=== PATIENT | male | born 1950 | race Caucasian/White ===

== ENCOUNTER 2021-08-24 11:44 | Observation (INO) | payer OTHER ==
[2021-08-24 12:56] LABS: Hematocrit 38.4 % (42-50); Hemoglobin 12.5 gm/dl (12.5-18.0); Mean Corpuscular Hemoglobin 30.9 pg (26-32); Mean Corpuscular Hgb Concent. 32.6 g/dl (32-36); Mean Platelet Volume 8.9 fl (7.5-11.0); Platelet Count 342 K/mm3 (150-450); Red Blood Count 4.04 M/mm3 (4.1-5.6); Red Cell Distribution Width 14.5 % (11.5-14.0); White Blood Count 6.8 K/mm3 (4.0-10.5)
[2021-08-24 13:25] LABS: INFLUENZA A NEGATIVE (NEGATIVE); INFLUENZA B NEGATIVE (NEGATIVE); RESPIRATORY SYNCTIAL VIRUS NEGATIVE (Negative); SARS-CoV-2 Xpert Express NEGATIVE (NEGATIVE)
[2021-08-24] MEDS: DUONEB 0.5-3 MG/3 ml Neb IH SCH ×3 (13:42→23:35)
[2021-08-24] MEDS ORDERED: solu-MEDROL 60 MG, Sterile H2O 10 ml 2 ML IV SCH ×2 (14:00)
[2021-08-24 14:01] LABS: ALBUMIN 3.6 g/dL (3.5-5.0); ALKALINE PHOSPHATASE 103 U/L (38-126); AMYLASE 76 U/L (30-110); ANION GAP 14.9 MEQ/L (5-15); BLOOD UREA NITROGEN 20 mg/dL (9-20); CHLORIDE 98 mmol/L (98-107); Calcium 9.1 mg/dL (8.4-10.2); Carbon Dioxide 28 mmol/L (22-30); Creatinine 1 0.93 mg/dL (0.66-1.25); EST GLOMERULAR FILTRATION RATE > 60.0 ML/MIN; Glucose 103 mg/dL (74-106); LIPASE 143 U/L (23-300); Potassium 4.6 mmol/L (3.5-5.1); SGOT/AST 52 U/L (17-59); SGPT/ALT 53 U/L (0-50); SODIUM 137 mmol/L (137-145); TROPONIN < 0.012 ng/mL (0.000-0.034); Total Protein 6.6 g/dL (6.3-8.2)
[2021-08-24 14:30] LABS: Vitamin B12 > 1000 pg/mL (239-931)
[2021-08-24] MEDS ORDERED: HOLD METFORMIN PRODUCTS FOR 48 HOURS MC SCH (16:00)
[2021-08-24] MEDS: Sodium Chloride 0.9% 1000 ML 1,000 ML IV SCH (16:22)
[2021-08-24] MEDS ORDERED: Nitrostat 0.4 MG Tablet SL PRN (16:22)
[2021-08-24] MEDS: ROCEPHIN 1 Gm-D5w 50 ml Bag** 1 G/50 ML IVPB IV SCH (16:23)
--- NOTE | 2021-08-24 16:28 | XRAY ---
Indication: Cough. Pneumonia. Elevated d-dimer. Multiple contiguous axial images obtained through the chest using 100 cc Isovue 370 contrast and PE protocol. Comparison: None There is adequate opacification of the pulmonary arteries. No pulmonary embolus. Heart is not enlarged. Aorta is normal in course and caliber. No pathologic mediastinal/hilar lymphadenopathy. Lungs demonstrate minimal bibasilar subsegmental atelectasis/scarring. No suspicious pulmonary mass/nodule, infiltrate, consolidation, or effusion. Bony thorax intact with mild osteopenia and mild degenerative changes throughout the spine. Limited upper abdomen demonstrates fatty liver and cholecystectomy clips. Impression: 1. Negative pulmonary embolus. 2. Bibasilar subsegmental atelectasis/scarring, chronic bony findings, and fatty liver. 3. Remaining CT chest with contrast exam is negative.
[2021-08-24] MEDS ORDERED: Cyanocobalamin B-12 1000 MCG/ML IJ SCH (16:30)
--- NOTE | 2021-08-24 16:31 | XRAY ---
Indication: Dyspnea and fatigue. Pneumonia. Comparison: None PA/lateral chest demonstrates minimal bibasilar fibrosis/scarring. Remaining heart and lungs unremarkable. Bony fact intact with mild osteopenia and degenerative changes. Impression: Nonacute chest with chronic features.
[2021-08-24] MEDS: NON-FORMULARY ITEM PO SCH ×2 (16:35→22:17)
[2021-08-24 16:46] LABS: Appearance CLEAR (CLEAR); Bilirubin NEGATIVE (NEGATIVE); Blood NEGATIVE Ery/ul (0-5); Glucose NEGATIVE (NEGATIVE); Ketones TRACE (NEGATIVE); Leukocyte Esterase NEGATIVE (NEGATIVE); Mucus SLIGHT /HPF (NEGATIVE); Nitrite NEGATIVE (NEGATIVE); Protein,Urine Dip NEGATIVE (Negative); Specific Gravity 1.023 (1.005-1.025); Urobilinogen 4 mg/dL (0-1)
[2021-08-24] MEDS: Zithromax 500 MG/ 250 ML NaCl Premix 500 MG/250 ML IVPB IV SCH (17:52)
[2021-08-24] MEDS ORDERED: ZOCOR 20MG PO SCH (18:00)
[2021-08-24] MEDS ORDERED: Zanaflex 4 MG PO SCH (18:00)
[2021-08-24] MEDS ORDERED: NON-FORMULARY ITEM (Atorvastatin Calcium [Atorvastatin Calcium] 20 MG Tablet) PO SCH (18:00)
[2021-08-24] MEDS ORDERED: Zofran 4 MG/2 ML VIAL IV PRN (19:35)
[2021-08-24] MEDS ORDERED: NON-FORMULARY ITEM (Melatonin [Melatonin] 10 MG Tablet) PO SCH (22:00)
[2021-08-24] MEDS: NEURONTIN 300 MG PO SCH (22:16)
[2021-08-24] MEDS: REQUIP 2MG TAB PO SCH (22:17)
[2021-08-24] MEDS: solu-MEDROL 60 MG, Sterile H2O 10 ml 2 ML IV SCH ×2 (23:00)
[2021-08-25] MEDS: Sodium Chloride 0.9% 1000 ML 1,000 ML IV SCH (01:50)
[2021-08-25] MEDS: solu-MEDROL 60 MG, Sterile H2O 10 ml 2 ML IV SCH ×2 (05:32)
[2021-08-25] MEDS: DUONEB 0.5-3 MG/3 ml Neb IH SCH (06:00)
[2021-08-25] MEDS ORDERED: NON-FORMULARY ITEM (Multivitamin [Multi-Vitamin Daily] 1 EACH Tablet) PO SCH (10:00)
[2021-08-25] MEDS ORDERED: Pepcid 20 MG PO SCH (10:00)
[2021-08-25] MEDS ORDERED: MELOXICAM PO SCH (10:00)
[2021-08-25] MEDS ORDERED: THERAGRAN MULTIVITAMIN PO SCH (10:00)
[2021-08-25] MEDS ORDERED: Vitamin B-12 500 MCG PO SCH (10:00)
[2021-08-25] MEDS ORDERED: NON-FORMULARY ITEM (Esomeprazole Magnesium [Nexium] 40 MG Capsule.Dr) PO SCH (10:00)
[2021-08-25] MEDS ORDERED: NORVASC 5 MG PO SCH (10:00)
[2021-08-25] MEDS ORDERED: Protonix 40MG Tablet PO SCH (10:00)
[2021-08-25] MEDS ORDERED: NON-FORMULARY ITEM (Cyanocobalamin (Vitamin B-12) [Vitamin B12] 2,500 MCG Tablet) PO SCH (10:00)
[2021-08-25] MEDS ORDERED: RANITIDINE HCL 300 MG PO SCH (10:00)
[2021-08-25] MEDS: ROCEPHIN 1 Gm-D5w 50 ml Bag** 1 G/50 ML IVPB IV SCH (10:05)
[2021-08-25] MEDS: NEURONTIN 300 MG PO SCH (10:06)
[2021-08-25] MEDS: NON-FORMULARY ITEM PO SCH (10:06)
[2021-08-25] MEDS: REQUIP 2MG TAB PO SCH (10:06)
[2021-08-25] MEDS: Zithromax 500 MG/ 250 ML NaCl Premix 500 MG/250 ML IVPB IV SCH (10:38)
[2021-08-26] MEDS ORDERED: Glucophage 500 MG PO SCH (17:00)
--- NOTE | 2021-08-28 15:29 | ECHO ---
Transthoracic echocardiographic examination and color Doppler was done on 08/24/2021. INDICATION: Shortness of breath. IMPRESSION: 1) NO REGIONAL WALL MOTION ABNORMALITY. ESTIMATED GLOBAL LEFT VENTRICULAR EJECTION FRACTION OF AROUND 60%. 2) TRACE TRICUSPID REGURGITATION. RIGHT VENTRICULAR SYSTOLIC PRESSURE OF 22 MM OF MERCURY. 3) LEFT VENTRICULAR DIASTOLIC DYSFUNCTION. The left ventricle is visualized and demonstrated adequate motion of all the segments. Estimated global left ventricular ejection fraction of 60%. The left ventricular thickness is normal. The mitral valve is seen and this opens adequately. No significant mitral regurgitation is seen. Left atrium is normal. Tissue Doppler study of the lateral mitral annulus suggestive of a left ventricle diastolic dysfunction. The aortic valve opens adequately. There is no significant gradient across the left ventricular outflow tract. The right side chambers are normal. There is trace tricuspid regurgitation. The right ventricular systolic pressure of 22 mm of Mercury.
[2021-08-28 15:34] LABS: Procalcitonin 0.06 ng/mL (0.00-0.08)
[2021-08-28 16:58] VITALS: BP 118/58; PULSE 117; O2SAT 90
[2021-09-06 10:39] LABS: Endomysial Antibody Titer IgA <1:2.5 titer (.)
--- NOTE | 2021-09-09 13:22 | PCM.SSS ---
History of Present Illness - Chief Complaint Chief Complaint: Pneumonia, dyspnea, fatigue Date: 08/25/21 History of Present Illness: is a 71 year old male. Pt. presented to office with persistence of weakness, cough and fevers over the past couple of weeks with recent hospitalization for pneumonia, this is very uncharacteristic for the patient and with crackles in left base it was felt the pneumonia was persistent as the patient had covid several weeks ago and thought of persistent covid related weakness could also be etiology of his ongoing illness. - Review of Systems Constitutional: Fever, Weakness Eyes: No Symptoms Ears, Nose, & Throat: No Symptoms Respiratory: Cough, Short Of Breath Cardiac: No Chest Pain, No Edema, No Syncope Abdominal/Gastrointestinal: No Abdominal Pain, No Nausea, No Vomiting, No Diarrhea Genitourinary Symptoms: No Dysuria Musculoskeletal: No Back Pain, No Neck Pain Skin: No Rash Neurological: No Dizziness, No Focal Weakness, No Sensory Changes Psychological: No Symptoms Endocrine: No Symptoms Hematologic/Lymphatic: No Symptoms Immunological/Allergic: No Symptoms Medications & Allergies Home Medications: Home Medication List Amlodipine Besylate 5 mg PO DAILY 08/24/21 [History Confirmed 08/24/21] Atorvastatin Calcium 20 mg PO EVENING MEAL 08/24/21 [History Confirmed 08/24/21] Cyanocobalamin (Vitamin B-12) [Vitamin B12] 2,500 mcg PO DAILY 08/24/21 [History Confirmed 08/24/21] Cyanocobalamin 1000 Mcg/ml [Cyanocobalamin B-12 1000 MCG/ML] 1,000 mcg IJ UD 08/24/21 [History Confirmed 08/24/21] Esomeprazole Magnesium [Nexium] 40 mg PO DAILY 08/24/21 [History Confirmed 08/24/21] Gabapentin 300 mg [Neurontin 300 mg] 300 mg PO TID 08/24/21 [History Confirmed 08/24/21] Melatonin 20 mg PO HS 08/24/21 [History Confirmed 08/24/21] Meloxicam 7.5 mg PO DAILY 08/24/21 [History Confirmed 08/24/21] Metformin HCl 500 mg [Glucophage 500 MG] 1,000 mg PO BID 08/24/21 [History Confirmed 08/24/21] Multivitamin [Multi-Vitamin Daily] 1 tab PO DAILY 08/24/21 [History Confirmed 08/24/21] Nitroglycerin 0.4 mg Tablet [Nitrostat 0.4 MG Tablet] 0.4 mg SL Q5MIN PRN MR X 3 PRN 08/24/21 [History Confirmed 08/24/21] Ranitidine HCl 300 mg PO DAILY 08/24/21 [History Confirmed 08/24/21] Ropinirole 2Mg [Requip 2Mg Tab] 4 mg PO BID 08/24/21 [History Confirmed 08/24/21] Tizanidine HCl 4 mg [Zanaflex 4 MG] 4 mg PO EVENING MEAL 08/24/21 [History Confirmed 08/24/21] Albuterol 2.5 mg/3 ml Neb [Proventil 2.5 mg/3 ml Neb] 2.5 mg IH Q6HPRN PRN 30 Days 08/25/21 [Rx] Methylprednisolone Packet [Medrol Dosepack] 4 mg PO DAILY 5 Days packet 08/25/21 [Rx] Valacyclovir HCl [Valacyclovir] 1,000 mg PO BID 10 Days tablet 08/25/21 [Rx] Allergies/Adverse Reactions: Allergies Allergy/AdvReac Type Severity Reaction Status Date / Time codeine AdvReac Verified 08/24/21 15:30 - Past Medical History Past Medical History: Yes Neurological History: No Pertinent History ENT History: No Pertinent History Cardiac History: Arrhythmia, Congenital Heart Disease, High Cholesterol, Hypertension Respiratory History: Pneumonia Endocrine Medical History: Diabetes Type II Musculoskelatal History: No Pertinent History GI Medical History: Hernia History: No Pertinent History Pyscho-Social History: No Pertinent History Male Reproductive Disorders: No Pertinent History - Past Surgical History Past Surgical History: Yes Neuro Surgical History: No Pertinent History Cardiac History: Cardiac Catheterization Respiratory Surgery: No Pertinent History GI Surgical History: Appendectomy, Bowel Surgery, Cholecystectomy Genitourinary Surgical Hx: No Pertinent History Musculskeletal Surgical Hx: Orthopedic Surgery Male Surgical History: No Pertinent History Other Surgical History: 2 back surgeries - Social History Smoking Status: Former smoker Exposure to second hand smoke: No Alcohol: None Drug Use: none - Physical Exam General Appearance: no apparent distress, alert Neurologic Exam: alert, oriented x 3, cooperative, normal mood/affect, nml cerebellar function, nml station & gait, sensation nml, No motor deficits Eye Exam: PERRL/EOMI, eyes nml inspection Ears, Nose, Throat Exam: normal ENT inspection, TMs normal, pharynx normal, moist mucous membranes Neck Exam: normal inspection, non-tender, supple, full range of motion Respiratory Exam: crackles/rales (left lower lobe), No chest tenderness, No respiratory distress Cardiovascular Exam: regular rate/rhythm, normal heart sounds, normal peripheral pulses Gastrointestinal/Abdomen Exam: soft, normal bowel sounds, No tenderness, No mass Back Exam: normal inspection, normal range of motion, No CVA tenderness, No vertebral tenderness Extremity Exam: normal inspection, normal range of motion, pelvis stable Skin Exam: normal color, warm, dry, No rash Lymphatic Exam: No adenopathy Assessment/Plan (1) COPD exacerbation Status: Acute Assessment & Plan: Pt. admitted and started on iv antibiotics, with further evaluation initiated. Code(s): J44.1 - CHRONIC OBSTRUCTIVE PULMONARY DISEASE W (ACUTE) EXACERBATION (2) Pneumonia Status: Acute Code(s): J18.9 - PNEUMONIA, UNSPECIFIED ORGANISM Hospital Summary - Hospital Course Hospital Course: Pt. admitted for further evaluation, iv fluids and iv antibiotics, by the following morning the patient was feeling much better and ready for discharge to home. Pneumonia evaluation did not show any problems on cxr and antibiotics were d/c'd upon discharge - Vitals & Intake/Output Vital Signs: Vital Signs Temperature 97.0 F 08/25/21 12:00 Pulse Rate 117 H 08/25/21 12:00 Respiratory Rate 27 H 08/25/21 12:00 Blood Pressure 118/58 08/25/21 12:00 O2 Sat by Pulse Oximetry 90 L 08/25/21 12:00 - Lab Result Diagrams: 08/24/21 12:52 08/24/21 12:52 - Procedures and Test Procedures and Tests throughout Hospitalization: Therapy Orders & Screens 08/24/21 12:40 Respiratory Nebulizer Q6H Comment: duonebs every 6 hrs Diagnosis: pne,dyspnea,fatigue 08/24/21 14:10 Respiratory Therapy Assessment DAILY Comment: Diagnosis: pne,dyspnea,fatigue - Discharge Discharge Date: 08/25/21 Disposition: Home, Self-Care Condition: Stable Prescriptions: New Methylprednisolone Packet [Medrol Dosepack] 4 mg PO DAILY 5 Days packet Valacyclovir HCl [Valacyclovir] 1,000 mg PO BID 10 Days tablet Albuterol 2.5 mg/3 ml Neb [Proventil 2.5 mg/3 ml Neb] 2.5 mg IH Q6HPRN PRN 30 Days PRN Reason: Shortness Of Breath/Wheezing No Action Melatonin 20 mg PO HS Cyanocobalamin 1000 Mcg/ml [Cyanocobalamin B-12 1000 MCG/ML] 1,000 mcg IJ UD Cyanocobalamin (Vitamin B-12) [Vitamin B12] 2,500 mcg PO DAILY Tizanidine HCl 4 mg [Zanaflex 4 MG] 4 mg PO EVENING MEAL Ropinirole 2Mg [Requip 2Mg Tab] 4 mg PO BID Ranitidine HCl 300 mg PO DAILY Nitroglycerin 0.4 mg Tablet [Nitrostat 0.4 MG Tablet] 0.4 mg SL Q5MIN PRN MR X 3 PRN PRN Reason: Chest Pain Metformin HCl 500 mg [Glucophage 500 MG] 1,000 mg PO BID Meloxicam 7.5 mg PO DAILY Gabapentin 300 mg [Neurontin 300 mg] 300 mg PO TID Esomeprazole Magnesium [Nexium] 40 mg PO DAILY Atorvastatin Calcium 20 mg PO EVENING MEAL Amlodipine Besylate 5 mg PO DAILY Multivitamin [Multi-Vitamin Daily] 1 tab PO DAILY Instructions: Fatigue (DC), Pneumonia, Adult (DC), Shortness of Breath (Dyspnea) (DC) Additional Instructions: DR. VALENCIA OFFICE WILL SEND IN FOR A NEW GLUCOMETER FOR YOU HOLD METFORMIN, MAY RESTART 08/26 IN THE EVENING Follow up with: CIPRIANO MCQUEEN MD [Primary Care Provider] - 08/29/21 3:00 pm Forms: Discharge Instructions
== END 2021-08-25 13:55 | disposition home or self-care (01) ==
LOC: MED SURG 12:00
PROVIDERS: ADMIT Family Medicine; ATTEND Family Medicine
DX: J44.1 Chronic obstructive pulmonary disease with (acute) exacerbation (principal); J18.9 Pneumonia, unspecified organism; R53.83 Other fatigue; Z20.828 Contact with and (suspected) exposure to other viral communicable diseases; Z79.899 Other long term (current) drug therapy; R53.1 Weakness; E11.9 Type 2 diabetes mellitus without complications; I10 Essential (primary) hypertension; E78.00 Pure hypercholesterolemia, unspecified
CPT/HCPCS: 0241U; 36415; 71046; 71260; 80053; 81001; 82150; 82306; 82607; 82947; 83036; 83690; 84100; 84145; 84443; 84484; 85027; 85379; 85652; 86038; 86255; 86430; 93306; 94640; 94760; G0378; J0456; J0696; J2405; J2930; A9270-GY

== ENCOUNTER 2022-10-11 07:29 | Emergency (ER) | payer MEDICARE ==
[2022-10-11] MEDS ORDERED: solu-MEDROL 125 MG, Sterile H2O 10 ml 2 ML IV ONE ×2 (07:41)
[2022-10-11] MEDS ORDERED: DUONEB 0.5-3 MG/3 ml Neb IH ONE ×2 (07:41→08:22)
--- NOTE | 2022-10-11 08:18 | ERPHSYRPT ---
- History of Present Illness Time Seen by Provider: 10/11/22 07:41 Source: patient Exam Limitations: no limitations Patient Subjective Stated Complaint: C/O SOB with cough. Patient indicates that this started 4-5 days ago but became "bad" last night. Denies any pain. States at home has COVID and tested positive on Saturday but his home tests have been negative. Denies fever. Triage Nursing Assessment: Patient ambulated back to ED. Patient a little SOB with extertion but not at rest. No SOB noted during assessment. Patient has a dry, non-productive, forceful cough. Lungs assessed by Dr. Moreno during triage. Skin tone normal. MARION SMITH. Physician History: 72 years old male with history of coronary artery disease status post stenting, hypertension, hyperlipidemia, psoriasis presented in the ER with chief complaint of worsening shortness of breath. Patient reports initially started as a URI cold symptoms are gradually going down in the chest with cough productive of clear to yellow sputum for the last 4 to 5 days and progressively getting worse. Patient reports feeling bit more worse since last night with coughing spells and it gets hard to get short of breath. No fever or chills reported. Patient does report having positive contact with COVID-19 although he tested negative at home. No chest pain reported otherwise. No lower extremity swelling. Timing/Duration: day(s), gradual onset, worse Activities at Onset: activity, other Severity of Dyspnea-Max: moderate Severity of Dyspnea-Current: moderate Possible Cause: illness exposure Modifying Factors: Improves With: coughing. Worsens With: exertion Associated Symptoms: cough, productive cough, No chest pain/discomfort, No fever, No wheezing, No dizziness, No heaviness, No heart racing, No lightheadedness, No muscle spasms hands, No painful breathing, No tingling face, No tingling hands Allergies/Adverse Reactions: codeine Adverse Reaction (Verified 10/11/22 07:30) GI reaction Home Medications: Amlodipine Besylate 5 mg PO DAILY 08/24/21 [History] Atorvastatin Calcium 40 mg PO EVENING MEAL 08/24/21 [History] Cyanocobalamin (Vitamin B-12) [Vitamin B12] 2,500 mcg PO DAILY 08/24/21 [History] Cyanocobalamin 1000 Mcg/ml [Cyanocobalamin B-12 1000 MCG/ML] 1,000 mcg IJ UD 08/24/21 [History] Esomeprazole Magnesium [Nexium] 40 mg PO DAILY 08/24/21 [History] Gabapentin [Neurontin ] 300 mg PO TID 08/24/21 [History] Melatonin 20 mg PO HS 08/24/21 [History] Meloxicam 7.5 mg PO DAILY 08/24/21 [History] Metformin HCl 500 mg [Glucophage 500 MG] 1,000 mg PO BID 08/24/21 [History] Multivitamin [Multi-Vitamin Daily] 1 tab PO DAILY 08/24/21 [History] Nitroglycerin 0.4 mg Tablet [Nitrostat 0.4 MG Tablet] 0.4 mg SL Q5MIN PRN MR X 3 PRN 08/24/21 [History] Ropinirole 2Mg [Requip 2Mg Tab] 4 mg PO BID 08/24/21 [History] Tizanidine HCl 4 mg [Zanaflex 4 MG] 4 mg PO EVENING MEAL 08/24/21 [History] raNITIdine HCL [Ranitidine HCl] 300 mg PO DAILY 08/24/21 [History] Clopidogrel Bisulfate [Clopidogrel] 1 tab PO DAILY 10/11/22 [History] Diclofenac Sodium 50 mg [Voltaren 50 mg] 1 tab PO DAILY 10/11/22 [History] Losartan Potassium [Cozaar] 1 tab PO DAILY 10/11/22 [History] Metoprolol Succinate 1 tab PO DAILY 10/11/22 [History] Hx Tetanus, Diphtheria Vaccination/Date Given: Yes Hx Influenza Vaccination/Date Given: Yes Hx Pneumococcal Vaccination/Date Given: Yes Immunizations Up to Date: Yes Travel Risk - International Travel Have you traveled outside of the country in past 3 weeks: No - Coronavirus Screening Are you exhibiting any of the following symptoms?: Yes Symptoms: Cough: New Onset, Shortness of Breath Close contact with a COVID-19 positive Pt in past 14-21 Days: Yes - Vaccine Status Have you recieved a Covid-19 vaccination: Yes [employer]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 - Vaccination Dates Date of 2cond Vaccination (if applicable): 11/28/20 - Review of Systems Constitutional: Fatigue, Weakness Eyes: No Symptoms Ears, Nose, & Throat: Nose Congestion, Sinus Drainage, Throat Pain Respiratory: Cough, Dyspnea Cardiac: No Symptoms Abdominal/Gastrointestinal: No Symptoms Genitourinary Symptoms: No Symptoms Musculoskeletal: Arthralgias Skin: No Symptoms Neurological: No Symptoms Psychological: No Symptoms Endocrine: No Symptoms Hematologic/Lymphatic: No Symptoms Immunological/Allergic: No Symptoms - Past Medical History Pertinent Past Medical History: Yes Neurological History: No Pertinent History ENT History: No Pertinent History Cardiac History: Arrhythmia, Congenital Heart Disease, High Cholesterol, Hypertension Respiratory History: Pneumonia Endocrine Medical History: Diabetes Type II Musculoskeletal History: No Pertinent History GI Medical History: GERD, Gallbladder Disease, Hernia History: No Pertinent History Psycho-Social History: No Pertinent History Male Reproductive Disorders: No Pertinent History Other Medical History: Psoriasis - Past Surgical History Past Surgical History: Yes Neuro Surgical History: No Pertinent History Cardiac: Cardiac Catheterization, Cardiac Stent Respiratory: No Pertinent History Gastrointestinal: Appendectomy, Bowel Surgery, Cholecystectomy Genitourinary: No Pertinent History Musculoskeletal: Orthopedic Surgery Male Surgical History: No Pertinent History Other Surgical History: 2 back surgeries, neck surgery - Social History Smoking Status: Former smoker Exposure to second hand smoke: No Drug Use: none Patient Lives Alone: No () - Nursing Vital Signs Nursing Vital Signs: Initial Vital Signs Temperature 98.6 F 10/11/22 07:31 Pulse Rate 89 10/11/22 07:31 Respiratory Rate 12 10/11/22 07:31 Blood Pressure 169/80 10/11/22 07:31 O2 Sat by Pulse Oximetry 99 10/11/22 07:31 Pain Scale Pain Intensity 0 - Physical Exam General Appearance: no apparent distress, alert Eye Exam: PERRL/EOMI Ears, Nose, Throat Exam: hearing grossly normal, normal ENT inspection, normal pharynx, abnormal TM (R) Neck Exam: normal inspection, non-tender, supple, full range of motion Respiratory Exam: normal breath sounds, lungs clear Cardiovascular/Chest Exam: normal heart sounds, regular rate/rhythm Abdominal/Gastrointestinal Exam: soft, normal bowel sounds, No tenderness Extremity Exam: non-tender, normal range of motion Neurologic Exam: alert, oriented x 3, cooperative Skin Exam: normal color SpO2 Interpretation: normal SpO2: 99 O2 Delivery: Room Air - Course EKG Interpreted by Me: RATE (82), Sinus Rhythm, NORMAL AXIS, NORMAL INTERVALS, NORMAL QRS Ordered Tests: Active Orders 24 hr Category Date Time Status Hydropulper Operator STAT Care 10/11/22 07:42 Active EKG-ER Only STAT Care 10/11/22 07:41 Active IV Insertion STAT Care 10/11/22 07:41 Active CHEST 1 VIEW (PORTABLE) Stat Exams 10/11/22 07:42 Completed BLOOD CULTURE Stat Lab 10/11/22 07:50 Received CBC W DIFF Stat Lab 10/11/22 07:50 Completed CMP Stat Lab 10/11/22 07:50 Completed Lactic Acid Stat Lab 10/11/22 07:50 Completed Lactic Acid Stat Lab 10/11/22 10:34 Received MAGNESIUM Stat Lab 10/11/22 07:50 Completed NT PRO BNP Stat Lab 10/11/22 07:50 Completed PROCALCITONIN Stat Lab 10/11/22 07:50 Completed TROPONIN Q4H Lab 10/11/22 07:50 Completed TROPONIN Q4H Lab 10/11/22 11:45 Ordered TROPONIN Q4H Lab 10/11/22 15:45 Ordered Medication Summary Discontinued Medications Generic Name Dose Route Start Last Admin Trade Name Freq PRN Reason Stop Dose Admin Hydrocodone Bitart/Acetaminophen 10 ml 10/11/22 08:28 10/11/22 08:52 Hydrocodone/Acetaminophen 5 Ml Udcup PO 10/11/22 08:29 10 ml STAT STA Administration Hydrocodone Bitart/Acetaminophen Confirm 10/11/22 08:51 Hydrocodone/Acetaminophen 5 Ml Udcup Administered 10/11/22 08:52 Dose 10 ml .ROUTE .STK-MED ONE Albuterol/Ipratropium 3 ml 10/11/22 07:41 10/11/22 08:25 Ipratropium/Albuterol Sulfate 3 Ml Ampul.Neb IH 10/11/22 07:42 3 ml STAT ONE Administration Albuterol/Ipratropium Confirm 10/11/22 08:22 Ipratropium/Albuterol Sulfate 3 Ml Ampul.Neb Administered 10/11/22 08:23 Dose 3 ml IH .STK-MED ONE Methylprednisolone Sodium 0 mg 10/11/22 07:41 10/11/22 08:51 Succinate 125 mg/ Sterile IV 10/11/22 07:42 125 mg Water 2 ml STAT ONE Administration Methylprednisolone Sodium Succinate Confirm 10/11/22 08:51 Methylprednis Sod Succ 125 Mg/2 Ml Vial Administered 10/11/22 08:52 Dose 125 mg .ROUTE .agri.capitalK-MED ONE Sterile Water Confirm 10/11/22 08:51 Water For Injection,Sterile 10 Ml Vial Administered 10/11/22 08:52 Dose 10 ml IJ .STK-MED ONE Lab/Rad Data: Laboratory Result Diagrams 10/11/22 07:50 10/11/22 07:50 Laboratory Results 10/11/22 10/11/22 10/11/22 Range/Units 07:50 07:50 07:50 WBC (4.0-10.5) x10^3/uL RBC (4.1-5.6) x10^6/uL Hgb (12.5-18.0) g/dL Hct (42-50) % MCV (78-100) fL MCH (26-32) pg MCHC (32-36) g/dL RDW (11.5-14.0) % Plt Count (150-450) x10^3/uL MPV (7.5-11.0) fL Gran % (36.0-66.0) % Immature Gran % (Auto) (0.00-0.4) % Nucleat RBC Rel Count (0.00-0.1) % Eos # (Auto) (0-0.5) x10^3/uL Immature Gran # (Auto) (0.00-0.03) x10^3u/L Absolute Lymphs (auto) (1.0-4.6) x10^3/uL Absolute Monos (auto) (0.0-1.3) x10^3/uL Absolute Nucleated RBC (0.00-0.01) x10^3u/L Lymphocytes % (24.0-44.0) % Monocytes % (0.0-12.0) % Eosinophils % (0.00-5.0) % Basophils % (0.0-0.4) % Absolute Granulocytes (1.4-6.9) x10^3/uL Basophils # (0-0.4) x10^3/uL Sodium (137-145) mmol/L Potassium (3.5-5.1) mmol/L Chloride (98-107) mmol/L Carbon Dioxide (22-30) mmol/L Anion Gap (5-15) MEQ/L BUN (9-20) mg/dL Creatinine (0.66-1.25) mg/dL Estimated GFR ML/MIN Glucose (74-106) mg/dL Lactic Acid (0.4-2.0) Calcium (8.4-10.2) mg/dL Magnesium (1.6-2.3) mg/dL Total Bilirubin (0.2-1.3) mg/dL AST (17-59) U/L ALT (0-50) U/L Alkaline Phosphatase (38-126) U/L Troponin I < 0.012 (0.000-0.034) ng/mL NT-Pro-B Natriuret Pep (0-900) pg/mL Serum Total Protein (6.3-8.2) g/dL Albumin (3.5-5.0) g/dL Procalcitonin 0.048 (0.030-0.080) ng/mL Influenza Type A Ag NEGATIVE (NEGATIVE) Influenza Type B Ag NEGATIVE (NEGATIVE) RSV (PCR) NEGATIVE (Negative) SARS-CoV-2 (PCR) POSITIVE A (NEGATIVE) 10/11/22 10/11/22 10/11/22 Range/Units 07:50 07:50 07:50 WBC 11.4 H (4.0-10.5) x10^3/uL RBC 4.30 (4.1-5.6) x10^6/uL Hgb 13.6 (12.5-18.0) g/dL Hct 40.4 L (42-50) % MCV 94.0 (78-100) fL MCH 31.6 (26-32) pg MCHC 33.7 (32-36) g/dL RDW 13.3 (11.5-14.0) % Plt Count 273 (150-450) x10^3/uL MPV 9.7 (7.5-11.0) fL Gran % 70.7 H (36.0-66.0) % Immature Gran % (Auto) 0.8 H (0.00-0.4) % Nucleat RBC Rel Count 0.0 (0.00-0.1) % Eos # (Auto) 0.19 (0-0.5) x10^3/uL Immature Gran # (Auto) 0.09 H (0.00-0.03) x10^3u/L Absolute Lymphs (auto) 1.41 (1.0-4.6) x10^3/uL Absolute Monos (auto) 1.60 H (0.0-1.3) x10^3/uL Absolute Nucleated RBC 0.00 (0.00-0.01) x10^3u/L Lymphocytes % 12.4 L (24.0-44.0) % Monocytes % 14.0 H (0.0-12.0) % Eosinophils % 1.7 (0.00-5.0) % Basophils % 0.4 (0.0-0.4) % Absolute Granulocytes 8.06 H (1.4-6.9) x10^3/uL Basophils # 0.05 (0-0.4) x10^3/uL Sodium 138 (137-145) mmol/L Potassium 4.6 (3.5-5.1) mmol/L Chloride 106 (98-107) mmol/L Carbon Dioxide 24 (22-30) mmol/L Anion Gap 12.5 (5-15) MEQ/L BUN 20 (9-20) mg/dL Creatinine 0.83 (0.66-1.25) mg/dL Estimated GFR > 60.0 ML/MIN Glucose 136 H (74-106) mg/dL Lactic Acid 2.5 H (0.4-2.0) Calcium 9.5 (8.4-10.2) mg/dL Magnesium 1.6 (1.6-2.3) mg/dL Total Bilirubin 0.60 (0.2-1.3) mg/dL AST 56 (17-59) U/L ALT 62 H (0-50) U/L Alkaline Phosphatase 106 (38-126) U/L Troponin I (0.000-0.034) ng/mL NT-Pro-B Natriuret Pep 79.3 (0-900) pg/mL Serum Total Protein 7.2 (6.3-8.2) g/dL Albumin 4.0 (3.5-5.0) g/dL Procalcitonin (0.030-0.080) ng/mL Influenza Type A Ag (NEGATIVE) Influenza Type B Ag (NEGATIVE) RSV (PCR) (Negative) SARS-CoV-2 (PCR) (NEGATIVE) - Progress Progress: improved Air Movement: good Progress Note: 10/11/22 10:31 72-year-old with multiple medical problems including hypertension, hyperlipid emia, diabetes mellitus, psoriasis is evaluated for 5-day history of cough congestion symptoms which started initially as upper respiratory and gradually having worsening cough productive of clear to yellow sputum which is way worse since last night especially when he lies down and no fever or chills reported. Positive contact with COVID-19 although he had a negative COVID test done at home. Patient is saying shortness of breath but no wheezing and satting around 99% on room air without tachypnea or tachycardia and his shortness of breath is more during coughing spells. I have given him DuoNeb and Solu-Medrol along with liquid hydrocodone, on reevaluation feeling much better. Chest x-ray did not show any acute cardiopulmonary findings. White count of 11 and negative troponin. Has normal procalcitonin. Does have positive COVID-19 here. I have offered impacts elevated, discussed risk and benefits, interactions and he along with his son right away declined. Patient is not in any distress, I would give him Symbicort along with hydrocodone cough syrup and Z-Can. I think patient would be a good on this regimen at home. Outpatient follow-up recommended. Discussed symptoms/signs of worsening needing return to ER which he seems understanding. Stable for discharge. Blood Culture(s) Obtained: No Antibiotics given: No Counseled pt/family regarding: lab results, diagnosis, need for follow-up, rad results - Departure Departure Disposition: Home Clinical Impression: COVID-19 virus detected, Bronchitis Condition: Stable Critical Care Time: No Referrals: CIPRIANO MCQUEEN MD [Primary Care Provider] - Follow Up with PCP/3 days Instructions: COVID-19 (DC), Bronchitis, Adult ED Prescriptions: Hydrocodone/Acetaminophen [Hydrocodone-Acetamin 2.5-108/5 ml Solution] 10 ml PO Q8HPRN PRN 4 Days #118 ml MDD 40ml PRN Reason: Cough Azithromycin 250 mg [Zithromax 250 MG TABLET] 250 mg PO ZPACK #6 tablet
[2022-10-11] MEDS ORDERED: HYDROCODONE-ACETAMIN 2.5-108/5 ML SOLUTION PO STA (08:28)
[2022-10-11 08:34] LABS: Absolute Neutrophil Ct (ANC) 8.06 x10^3/uL (1.4-6.9); Basophil (Absolute #) 0.05 x10^3/uL (0-0.4); Eosinophil % 1.7 % (0.00-5.0); Eosinophil (Absolute #) 0.19 x10^3/uL (0-0.5); Hematocrit 40.4 % (42-50); Hemoglobin 13.6 g/dL (12.5-18.0); Lymphocyte (Absolute #) 1.41 x10^3/uL (1.0-4.6); Lymphocytes % 12.4 % (24.0-44.0); Mean Corpuscular Hemoglobin 31.6 pg (26-32); Mean Corpuscular Hgb Concent. 33.7 g/dL (32-36); Mean Platelet Volume 9.7 fL (7.5-11.0); Neutrophil % 70.7 % (36.0-66.0); Platelet Count 273 x10^3/uL (150-450); Red Cell Distribution Width 13.3 % (11.5-14.0); White Blood Count 11.4 x10^3/uL (4.0-10.5)
[2022-10-11 08:49] LABS: INFLUENZA A NEGATIVE (NEGATIVE); INFLUENZA B NEGATIVE (NEGATIVE); RESPIRATORY SYNCTIAL VIRUS NEGATIVE (Negative)
[2022-10-11] MEDS ORDERED: solu-MEDROL ONE (08:51)
[2022-10-11] MEDS ORDERED: Sterile H2O 10 ml IJ ONE (08:51)
[2022-10-11] MEDS ORDERED: HYDROCODONE-ACETAMIN 2.5-108/5 ML SOLUTION ONE (08:51)
--- NOTE | 2022-10-11 08:56 | XRAY ---
Indication: Cough. Comparison: August 24, 2021 Portable chest unchanged again demonstrating minimal bibasilar fibrosis/scarring. Remaining heart and lungs unremarkable. Bony thorax intact again with mild osteopenia and degenerative changes. No new/acute findings.
[2022-10-11 08:58] LABS: SARS-CoV-2 Xpert Express POSITIVE (NEGATIVE)
[2022-10-11 09:09] LABS: ALKALINE PHOSPHATASE 106 U/L (38-126); ANION GAP 12.5 MEQ/L (5-15); BLOOD UREA NITROGEN 20 mg/dL (9-20); CHLORIDE 106 mmol/L (98-107); Calcium 9.5 mg/dL (8.4-10.2); Carbon Dioxide 24 mmol/L (22-30); Creatinine 1 0.83 mg/dL (0.66-1.25); EST GLOMERULAR FILTRATION RATE > 60.0 ML/MIN; Glucose 136 mg/dL (74-106); MAGNESIUM 1.6 mg/dL (1.6-2.3); NT PRO BNP 79.3 pg/mL (0-900); Potassium 4.6 mmol/L (3.5-5.1); SGOT/AST 56 U/L (17-59); SGPT/ALT 62 U/L (0-50); SODIUM 138 mmol/L (137-145); Total Protein 7.2 g/dL (6.3-8.2)
[2022-10-11 10:28] VITALS: BP 127/70
[2022-10-11 10:41] VITALS: PULSE 77
[2022-10-11 10:43] VITALS: O2SAT 99
[2022-10-11 14:55] LABS: Slide Review 1 YES
== END 2022-10-11 11:00 | disposition home or self-care (01) ==
LOC: ED 07:29
DX: U07.1 COVID-19 (principal); J40 Bronchitis, not specified as acute or chronic; R06.02 Shortness of breath; R05.1 Acute cough; I10 Essential (primary) hypertension; E78.5 Hyperlipidemia, unspecified; E11.9 Type 2 diabetes mellitus without complications; Z79.84 Long term (current) use of oral hypoglycemic drugs; Z79.02 Long term (current) use of antithrombotics/antiplatelets; Z79.899 Other long term (current) drug therapy
CPT/HCPCS: 0241U; 36000; 36415; 71045; 80053; 83605; 83735; 83880; 84145; 84484; 85025; 87040; 93005; 93041; 94640; 96374; 99284; J2930; A9270-GY

== ENCOUNTER 2023-07-12 23:20 | Emergency (ER) | payer MEDICARE ==
--- NOTE | 2023-07-12 23:24 | ERPHSYRPT ---
- History of Present Illness Time Seen by Provider: 07/12/23 23:23 Source: patient, family (Patient's son provided independent additional history) Exam Limitations: no limitations Physician History: This is a 73-year-old white male patient of Dr. Mcqueen who was brought to the emergency department by the patient's son who is an air flight readiness technician and knows his father's medical history and conditions very well. Per patient and the patient's son, the patient has had several of these episodes that are typically brief and respond to rehydration. 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 He still took his medication which includes medication for coronary disease, hypertension, hyperlipidemia, diabetes, Plavix, arrhythmia and gastroesophageal reflux disease. Patient denies chest pain. Patient denies shortness of breath. Patient denies abdominal pain. Patient has had no vomiting or diarrhea s ymptoms. He simply is very tired. Those symptoms after this patient's day out with the cattle have told his son and his family at that he is dehydrated. This is typically the case. Patient had a recent aortic ultrasound which was negative/normal. Patient and his family do not want an extensive work-up I do agree with IV placement, IV hydration, checking some labs, urinalysis and performing a twelve-lead EKG. they do not feel he needs a CAT scan of the head. Timing/Duration: today Severity: mild (To moderate) Character of Deficits: other (Generalized weakness) Deficits: no difficulties Baseline/Normal Cognition: alert oriented x 3 Current Cognition: alert oriented x 3 Baseline Gait: walks w/o assistance Associated Symptoms: No confusion, No weakness (Generalized mild), No chest pain Allergies/Adverse Reactions: codeine Adverse Reaction (Verified 07/12/23 23:32) GI reaction Home Medications: Atorvastatin Calcium 40 mg PO EVENING MEAL 08/24/21 [History] Esomeprazole Magnesium [Nexium] 40 mg PO DAILY 08/24/21 [History] Gabapentin [Neurontin ] 300 mg PO TID 08/24/21 [History] Meloxicam 15 mg PO DAILY 08/24/21 [History] Metformin HCl 500 mg [Glucophage 500 MG] 1,000 mg PO BID 08/24/21 [History] Nitroglycerin 0.4 mg Tablet [Nitrostat 0.4 MG Tablet] 0.4 mg SL Q5MIN PRN MR X 3 PRN 08/24/21 [History] Ropinirole 2Mg [Requip 2Mg Tab] 4 mg PO TID 08/24/21 [History] Tizanidine HCl 4 mg [Zanaflex 4 MG] 4 mg PO EVENING MEAL 08/24/21 [History] Clopidogrel Bisulfate [Clopidogrel] 1 tab PO DAILY 10/11/22 [History] Losartan Potassium [Cozaar] 1 tab PO DAILY 10/11/22 [History] Magnesium Oxide 400 mg [Mag-Ox 400] 400 mg PO DAILY 07/12/23 [History] Sertraline HCl 50 mg [Zoloft 50 mg Tablet] 50 mg PO DAILY 07/12/23 [History] Hx Tetanus, Diphtheria Vaccination/Date Given: Yes Hx Influenza Vaccination/Date Given: Yes Hx Pneumococcal Vaccination/Date Given: Yes Travel Risk - International Travel Have you traveled outside of the country in past 3 weeks: No - Coronavirus Screening Are you exhibiting any of the following symptoms?: No Close contact with a COVID-19 positive Pt in past 14-21 Days: No - Vaccine Status Have you recieved a Covid-19 vaccination: Yes Cover Marker: Moderna - Vaccination Dates Date of 2cond Vaccination (if applicable): 11/28/20 - Review of Systems Constitutional: Weakness (Generalized mild) Eyes: No Symptoms Respiratory: No Symptoms Cardiac: No Symptoms Abdominal/Gastrointestinal: No Symptoms Genitourinary Symptoms: No Symptoms Musculoskeletal: No Symptoms Skin: No Symptoms Neurological: No Symptoms Psychological: No Symptoms Endocrine: No Symptoms Hematologic/Lymphatic: No Symptoms Immunological/Allergic: No Symptoms All Other Systems: Reviewed and Negative - Past Medical History Pertinent Past Medical History: Yes Neurological History: No Pertinent History ENT History: No Pertinent History Cardiac History: Arrhythmia, Congenital Heart Disease, High Cholesterol, Hypertension Respiratory History: Pneumonia Endocrine Medical History: Diabetes Type II Musculoskeletal History: No Pertinent History GI Medical History: GERD, Gallbladder Disease, Hernia History: No Pertinent History Psycho-Social History: No Pertinent History Male Reproductive Disorders: No Pertinent History Other Medical History: Psoriasis - Past Surgical History Past Surgical History: Yes Neuro Surgical History: No Pertinent History Cardiac: Cardiac Catheterization, Cardiac Stent Respiratory: No Pertinent History Gastrointestinal: Appendectomy, Bowel Surgery, Cholecystectomy Genitourinary: No Pertinent History Musculoskeletal: Orthopedic Surgery Male Surgical History: No Pertinent History Other Surgical History: 2 back surgeries, neck surgery - Social History Smoking Status: Former smoker Exposure to second hand smoke: No Drug Use: none Patient Lives Alone: No () - Nursing Vital Signs Nursing Vital Signs: Initial Vital Signs Pulse Rate 65 07/12/23 23:30 Respiratory Rate 18 07/12/23 23:30 Blood Pressure 95/55 07/12/23 23:30 O2 Sat by Pulse Oximetry 97 07/12/23 23:30 Pain Scale Pain Intensity 0 - [place] Coma Scale Best Eye Response ([place]): (4) open spontaneously Best Verbal Response ([place]): (5) oriented Best Motor Response ([place]): (6) obeys commands [place] Total: 15 - Physical Exam General Appearance: no apparent distress, alert Eye Exam: bilateral eye: normal inspection, PERRL, EOMI Ears, Nose, Throat Exam: dry mucous membranes Neck Exam: normal inspection, non-tender, supple, full range of motion Respiratory: normal breath sounds, lungs clear, airway intact, No chest tenderness, No respiratory distress Cardiovascular: regular rate/rhythm, normal heart sounds, normal peripheral pulses Gastrointestinal: soft, normal bowel sounds, No tenderness Back Exam: normal inspection, normal range of motion, No CVA tenderness, No vertebral tenderness Extremity Exam: normal inspection, normal range of motion, pelvis stable Mental Status: alert, oriented x 3, other (Seems a little tired) dioramist Exam: normal hearing, normal speech, PERRL, tongue midline Motor/Sensory: no motor deficit, no sensory deficit, no pronator drift Skin Exam: normal color, warm SpO2 Interpretation: normal O2 Delivery: Room Air - Course Nursing assessment & vital signs reviewed: Yes EKG Interpreted by Me: RATE (65), Sinus Rhythm, NORMAL AXIS, NORMAL INTERVALS, NORMAL QRS, NORMAL ST-T, Other (No acute ischemic changes on today's twelve-lead EKG.) Ordered Tests: Active Orders 24 hr Category Date Time Status EKG-ER Only STAT Care 07/13/23 00:06 Active IV Insertion STAT Care 07/13/23 00:06 Active CBC W DIFF Stat Lab 07/13/23 00:17 Completed CMP Stat Lab 07/13/23 00:17 Completed MAG [MAGNESIUM] Stat Lab 07/13/23 00:17 Completed POCT GLUCOSE Stat Lab 07/12/23 23:31 Completed TROPONIN Q4H Lab 07/13/23 00:17 Completed TROPONIN Q4H Lab 07/13/23 04:15 Ordered TROPONIN Q4H Lab 07/13/23 08:15 Ordered UA W/RFX UR CULTURE Stat Lab 07/13/23 01:18 Completed Medication Summary Discontinued Medications Generic Name Dose Route Start Last Admin Trade Name Marine PRN Reason Stop Dose Admin Sodium Chloride 1,000 mls @ 999 mls/hr 07/13/23 00:06 07/13/23 01:11 Sodium Chloride 0.9% 1000 Ml IV 07/13/23 01:06 Infused .Q1H1M STA Infusion Sodium Chloride Confirm 07/13/23 00:10 Sodium Chloride 0.9% 1000 Ml Administered 07/13/23 00:11 Dose 1,000 mls @ ud .ROUTE .STK-MED ONE Sodium Chloride 1,000 mls @ 999 mls/hr 07/13/23 01:31 07/13/23 02:37 Sodium Chloride 0.9% 1000 Ml IV 07/13/23 02:31 Infused .Q1H1M STA Infusion Sodium Chloride Confirm 07/13/23 01:32 Sodium Chloride 0.9% 1000 Ml Administered 07/13/23 01:33 Dose 1,000 mls @ ud .ROUTE .STK-MED ONE Lab/Rad Data: Laboratory Result Diagrams 07/13/23 00:17 07/13/23 00:17 Laboratory Results 07/13/23 07/13/23 07/13/23 Range/Units 01:18 00:17 00:17 WBC (4.0-10.5) x10^3/uL RBC (4.1-5.6) x10^6/uL Hgb (12.5-18.0) g/dL Hct (42-50) % MCV (78-100) fL MCH (26-32) pg MCHC (32-36) g/dL RDW (11.5-14.0) % Plt Count (150-450) x10^3/uL MPV (7.5-11.0) fL Gran % (36.0-66.0) % Immature Gran % (Auto) (0.00-0.4) % Nucleat RBC Rel Count (0.00-0.1) % Eos # (Auto) (0-0.5) x10^3/uL Immature Gran # (Auto) (0.00-0.03) x10^3u/L Absolute Lymphs (auto) (1.0-4.6) x10^3/uL Absolute Monos (auto) (0.0-1.3) x10^3/uL Absolute Nucleated RBC (0.00-0.01) x10^3u/L Lymphocytes % (24.0-44.0) % Monocytes % (0.0-12.0) % Eosinophils % (0.00-5.0) % Basophils % (0.0-0.4) % Absolute Granulocytes (1.4-6.9) x10^3/uL Basophils # (0-0.4) x10^3/uL Sodium (137-145) mmol/L Potassium (3.5-5.1) mmol/L Chloride (98-107) mmol/L Carbon Dioxide (22-30) mmol/L Anion Gap (5-15) MEQ/L BUN (9-20) mg/dL Creatinine (0.66-1.25) mg/dL Estimated GFR ML/MIN Glucose (74-106) mg/dL POC Glucometer (74 to 106) mg/dL Calcium (8.4-10.2) mg/dL Magnesium 1.5 L (1.6-2.3) mg/dL Total Bilirubin (0.2-1.3) mg/dL AST (17-59) U/L ALT (0-50) U/L Alkaline Phosphatase (38-126) U/L Troponin I < 0.012 (0.000-0.034) ng/mL Serum Total Protein (6.3-8.2) g/dL Albumin (3.5-5.0) g/dL Urine Color Yellow (Yellow) Urine Appearance Clear (Clear) Urine pH 5.5 (4.6-8.0) Ur Specific [place] 1.025 (1.005-1.030) Urine Protein Trace A (Negative) Urine Glucose (UA) >=1000 A (Negative) mg/dL Urine Ketones 15 A (Negative) Urine Blood Negative (Negative) Urine Nitrite Negative (Negative) Urine Bilirubin Negative (Negative) Urine Urobilinogen 1.0 A (0.2) mg/dL Ur Leukocyte Esterase Negative (Negative) U Hyaline Cast (Auto) 6-10 A (0-2) /LPF Urine Microscopic RBC 0-2 (0-5) /HPF Urine Microscopic WBC 0-2 (0-5) /HPF Ur Epithelial Cells None Seen (None Seen) /HPF Urine Bacteria None Seen (None Seen) /HPF Urine Culture Reflexed NO (NO) 07/13/23 07/13/23 07/12/23 Range/Units 00:17 00:17 23:31 WBC 7.4 (4.0-10.5) x10^3/uL RBC 4.46 (4.1-5.6) x10^6/uL Hgb 14.0 (12.5-18.0) g/dL Hct 41.4 L (42-50) % MCV 92.8 (78-100) fL MCH 31.4 (26-32) pg MCHC 33.8 (32-36) g/dL RDW 13.0 (11.5-14.0) % Plt Count 300 (150-450) x10^3/uL MPV 10.1 (7.5-11.0) fL Gran % 64.5 (36.0-66.0) % Immature Gran % (Auto) 0.5 H (0.00-0.4) % Nucleat RBC Rel Count 0.0 (0.00-0.1) % Eos # (Auto) 0.14 (0-0.5) x10^3/uL Immature Gran # (Auto) 0.04 H (0.00-0.03) x10^3u/L Absolute Lymphs (auto) 1.50 (1.0-4.6) x10^3/uL Absolute Monos (auto) 0.89 (0.0-1.3) x10^3/uL Absolute Nucleated RBC 0.00 (0.00-0.01) x10^3u/L Lymphocytes % 20.3 L (24.0-44.0) % Monocytes % 12.0 (0.0-12.0) % Eosinophils % 1.9 (0.00-5.0) % Basophils % 0.8 (0.0-0.4) % Absolute Granulocytes 4.77 (1.4-6.9) x10^3/uL Basophils # 0.06 (0-0.4) x10^3/uL Sodium 138 (137-145) mmol/L Potassium 5.1 (3.5-5.1) mmol/L Chloride 104 (98-107) mmol/L Carbon Dioxide 24 (22-30) mmol/L Anion Gap 16.2 H (5-15) MEQ/L BUN 24 H (9-20) mg/dL Creatinine 1.74 H (0.66-1.25) mg/dL Estimated GFR 40.9 ML/MIN Glucose 171 H (74-106) mg/dL POC Glucometer 169 H (74 to 106) mg/dL Calcium 9.3 (8.4-10.2) mg/dL Magnesium (1.6-2.3) mg/dL Total Bilirubin 0.70 (0.2-1.3) mg/dL AST 62 H (17-59) U/L ALT 64 H (0-50) U/L Alkaline Phosphatase 90 (38-126) U/L Troponin I (0.000-0.034) ng/mL Serum Total Protein 7.3 (6.3-8.2) g/dL Albumin 4.4 (3.5-5.0) g/dL Urine Color (Yellow) Urine Appearance (Clear) Urine pH (4.6-8.0) Ur Specific [place] (1.005-1.030) Urine Protein (Negative) Urine Glucose (UA) (Negative) mg/dL Urine Ketones (Negative) Urine Blood (Negative) Urine Nitrite (Negative) Urine Bilirubin (Negative) Urine Urobilinogen (0.2) mg/dL Ur Leukocyte Esterase (Negative) U Hyaline Cast (Auto) (0-2) /LPF Urine Microscopic RBC (0-5) /HPF Urine Microscopic WBC (0-5) /HPF Ur Epithelial Cells (None Seen) /HPF Urine Bacteria (None Seen) /HPF Urine Culture Reflexed (NO) - Progress Progress: improved, re-examined Progress Note: 07/13/23 00:05 This patient's medical issue is 1 of moderate complexity level complexity in the work-up performed is based on review of the patient's past medical history, review of the patient's medication list, review of the patient's drug allergy list, history present illness and physical findings on examination. The patient's work-up will include intravenous line placement, infusion of normal saline solution, urinalysis, twelve-lead EKG, troponin level, CBC, CMP, magnesium level. Patient and son want to hold off on any radiographic studies until after patient is rehydrated. They will assess whether they feel he will accept CT scan of the head. 07/13/23 02:39 Clinically, the patient states he is feeling very well now. He has no chest pain. He is not short of breath. His clinical impression is that of dehydration Counseled pt/family regarding: lab results, diagnosis, need for follow-up Medical Desision Making - Independent Historian Additional History obtained from: Child - Diagnostic Testing Diagnostic test were ordered, analyzed, and reviewed by me: Yes - Risk of complications Low Risk: Low risk of morbidity from additional dx testing or treatment - Departure Departure Disposition: Home Clinical Impression: Dehydration Condition: Stable Critical Care Time: No Referrals: CIPRIANO MCQUEEN MD [Primary Care Provider] - Follow up/PCP as directed Additional Instructions: Drink plenty of fluids and advance diet before taking your medication. Call your primary care provider on 11/15/2026 to make arranges for follow-up appointment for further evaluation management.
[2023-07-12 23:54] VITALS: TEMP 96.6
[2023-07-13] MEDS ORDERED: Sodium Chloride 0.9% 1000 ML 1,000 ML IV STA ×2 (00:06→01:31)
[2023-07-13] MEDS ORDERED: Sodium Chloride 0.9% 1000 ML 1,000 ML ONE ×2 (00:10→01:32)
[2023-07-13 00:19] LABS: Absolute Neutrophil Ct (ANC) 4.77 x10^3/uL (1.4-6.9); BASOPHIL % 0.8 % (0.0-0.4); Basophil (Absolute #) 0.06 x10^3/uL (0-0.4); Eosinophil % 1.9 % (0.00-5.0); Eosinophil (Absolute #) 0.14 x10^3/uL (0-0.5); Hematocrit 41.4 % (42-50); IMMATURE GRAN # 0.04 x10^3u/L (0.00-0.03); IMMATURE GRAN % 0.5 % (0.00-0.4); Lymphocytes % 20.3 % (24.0-44.0); Mean Cell Volume 92.8 fL (78-100); Mean Corpuscular Hemoglobin 31.4 pg (26-32); Mean Corpuscular Hgb Concent. 33.8 g/dL (32-36); Mean Platelet Volume 10.1 fL (7.5-11.0); Monocyte (Absolute #) 0.89 x10^3/uL (0.0-1.3); Neutrophil % 64.5 % (36.0-66.0); Platelet Count 300 x10^3/uL (150-450); Red Blood Count 4.46 x10^6/uL (4.1-5.6); White Blood Count 7.4 x10^3/uL (4.0-10.5)
[2023-07-13 00:34] LABS: ALBUMIN 4.4 g/dL (3.5-5.0); ANION GAP 16.2 MEQ/L (5-15); BILIRUBIN,TOTAL 0.7 mg/dL (0.2-1.3); Calcium 9.3 mg/dL (8.4-10.2); Creatinine 1 1.74 mg/dL (0.66-1.25); EST GLOMERULAR FILTRATION RATE 40.9 ML/MIN; Potassium 5.1 mmol/L (3.5-5.1); Total Protein 7.3 g/dL (6.3-8.2)
[2023-07-13 01:28] LABS: ADD URINE CULTURE? NO (NO); Appearance Clear (Clear); Bacteria None Seen /HPF (None Seen); Bilirubin Negative (Negative); Blood Negative (Negative); Epithelial Cells None Seen /HPF (None Seen); Glucose, Urine >=1000 mg/dL (Negative); Ketones 15 (Negative); Leukocyte Esterase Negative (Negative); Nitrite Negative (Negative); Ph 5.5 (4.6-8.0); Protein,Urine Dip Trace (Negative); RBC 0-2 /HPF (0-5); Specific Gravity 1.025 (1.005-1.030); WBC 0-2 /HPF (0-5)
[2023-07-13 02:36] VITALS: BP 128/65; PULSE 72; RESP 14; O2SAT 97
== END 2023-07-13 02:57 | disposition home or self-care (01) ==
LOC: ED 23:20
DX: E86.0 Dehydration (principal); R53.83 Other fatigue; R53.1 Weakness; I10 Essential (primary) hypertension; E78.5 Hyperlipidemia, unspecified; E11.9 Type 2 diabetes mellitus without complications; Z79.02 Long term (current) use of antithrombotics/antiplatelets; Z79.84 Long term (current) use of oral hypoglycemic drugs; Z79.899 Other long term (current) drug therapy
CPT/HCPCS: 36000; 36415; 80053; 81001; 82947; 83735; 84484; 85025; 93005; 96360; 96361; 99284